=== PATIENT | male | born 1970 | race Caucasian/White ===

== ENCOUNTER 2024-11-24 11:48 | Emergency (ER) | payer SELFPAY ==
[~2024-11-24] VITALS: Ht 188 cm; Wt 101.8 kg
[2024-11-24 11:57] VITALS: BP 135/87; PULSE 99; RESP 18; O2SAT 98
[2024-11-24] MEDS ORDERED: DOXY100C43 PO (13:04)
[2024-11-24] MEDS ORDERED: CEPH-585 PO (13:04)
[2024-11-24] MEDS ORDERED: FLUC150T22 PO (13:07)
[2024-11-24] MEDS ORDERED: CLOT12CR TOP (13:08)
[2024-11-24] MEDS: insulin regular, human 10 units/0.1 ml syringe SQ STA (13:30)
[2024-11-24 13:35] VITALS: TEMP 98
== END 2024-11-24 13:39 | disposition home or self-care (01) ==
LOC: ER 11:49
DX: E11.621 Type 2 diabetes mellitus with foot ulcer (principal); L97.519 Non-pressure chronic ulcer of other part of right foot with unspecified severity
CPT/HCPCS: 73630; 82948; 96372; 99283; J1815